=== PATIENT | female | born 1985 | race Caucasian/White ===

== ENCOUNTER 2017-01-23 21:07 | Inpatient (IN) | payer BC ==
[~2017-01-23] VITALS: Ht 165.1 cm; Wt 81.8 kg
[~2017-01-23 21:07] MED LIST: MOTRIN 600600 MG/TAB PO; PERCOCET 325 MG1 TA2 PO
[2017-01-23 21:21] VITALS: BP 123/62; PULSE 76; TEMP 98.5
[2017-01-23] MEDS ORDERED: PRENATAL1 TA7 PO (21:33)
[2017-01-23 23:30] VITALS: BP 123/75; PULSE 68
[2017-01-23 23:40] LABS: BASO % 0.4 % (0.0-2.0); EOS # 0.1 (0.0-0.7); EOS % 0.7 % (0-4.0); GRAN # 7.9 (1.4-6.5); GRAN % 74.7 % (42.2-75.2); LYMPH # 1.7 (1.2-3.4); LYMPH % 15.9 % (20.0-51.0); MEAN CELL VOLUME 84 fl (80.0-100.0); MEAN CORPUSCULAR HGB CONC 33 g/dl (33.0-37.0); MEAN PLATELET VOLUME 12.3 fl (7.4-10.4); MONO # 0.8 (0.1-0.6); MONO % 7.7 % (1.7-9.3); PLATELET COUNT 174 K/mm3 (130-400); REDCELL DISTRIBUTION WIDTH-CV 14.3 % (11.5-14.5); WHITE BLOOD COUNT 10.5 K/mm3 (4.8-10.8)
[2017-01-23 23:41] LABS: HEMATOCRIT 31.8 % (37.0-47.0); HEMOGLOBIN 10.6 g/dl (12.5-16.0); MEAN CORPUSCULAR HEMOGLOBIN 28 pg (27.0-31.0)
[2017-01-24] VITALS (23 sets, daily range): BP systolic 87–158; BP diastolic 45–80; PULSE 54–88; TEMP 97.2–98.3
[2017-01-25] MEDS ORDERED: IBU800 M1 PO (07:14)
[2017-01-25 08:30] VITALS: BP 120/69; PULSE 67; TEMP 98
== END 2017-01-25 13:10 | disposition home or self-care (01) | DRG 775 ==
LOC: LDRO 21:07 → LDR 22:50 → OB 01-24 08:45
PROVIDERS: Student in an Organized Health Care Education/Training Program
PROC: 10E0XZZ Delivery of Products of Conception, External Approach (ICD-10-PCS; principal; 2017-01-24)
PROC: 0KQM0ZZ Repair Perineum Muscle, Open Approach (ICD-10-PCS; 2017-01-24)
PROC: 0UQMXZZ Repair Vulva, External Approach (ICD-10-PCS; 2017-01-24)
DX: O70.1 Second degree perineal laceration during delivery (principal); Z37.0 Single live birth; O71.82 Other specified trauma to perineum and vulva; Z3A.39 39 weeks gestation of pregnancy
CPT/HCPCS: J2590; J7120

== ENCOUNTER 2021-04-05 13:30 | Inpatient (IN) | payer BC ==
[~2021-04-05] VITALS: Ht 165.1 cm; Wt 88.4 kg
[2021-04-05] VITALS (27 sets, daily range): BP systolic 106–136; BP diastolic 52–87; PULSE 58–92; TEMP 97.7–99
[~2021-04-05 13:30] MED LIST changes: +IBU800 M1 PO; +PRENATAL1 TA7 PO
--- NOTE | 2021-04-05 13:40 | NUR ---
Patient ambulatory to LR3 with spouse, changed into gown, FHR/TOCO monitors placed and explained. Patient states that she had some fluid about 0030 and continued to leak, some slight cramping. Patient denies any regular contractions/leaking of fluid/vaginal bleeding/decreased movement. Plan of care discussed. 1345: SVE-2/50/-2 and amniotest positive with clear fluid noted. 1357: Dr. Morse called and notified-orders for admit and start pitocin. Assessment completed/consents signed/ packet given. 1420: IV started in left upper arm, blood obtained and to lab, LR infushing. Pitocin augmentation discussed and patient agrees, pitocin started at this time at 2 mU/ml. 1430: Dr. Morse at bedside discussing the possible need to start antibiotics due to prolonged rupture of membranes.
[2021-04-05] MEDS ORDERED: OSCAL 500 TAB500 MG PO (13:53)
[2021-04-05] MEDS ORDERED: PRENATAL TABLET PO (13:53)
[2021-04-05 15:06] LABS: BASO % 0.3 % (0.0-2.0); EOS % 0.4 % (0-4.0); GRAN # 8.7 (1.4-6.5); GRAN % 81.3 % (42.2-75.2); HEMOGLOBIN 11.2 g/dl (12.5-16.0); LYMPH # 1.2 (1.2-3.4); LYMPH % 11.1 % (20.0-51.0); MEAN CELL VOLUME 87 fl (80.0-100.0); MEAN CORPUSCULAR HEMOGLOBIN 29 pg (27.0-31.0); MEAN CORPUSCULAR HGB CONC 33 g/dl (33.0-37.0); MEAN PLATELET VOLUME 12.3 fl (7.4-10.4); MONO # 0.7 (0.1-0.6); MONO % 6.3 % (1.7-9.3); PLATELET COUNT 188 K/mm3 (130-400); REDCELL DISTRIBUTION WIDTH-CV 14.1 % (11.5-14.5)
[2021-04-05 15:16] LABS: HEMATOCRIT 33.8 % (37.0-47.0)
--- NOTE | 2021-04-05 15:45 | NUR ---
Patient on birthing ball and difficulty tracing FHR due to maternal position, monitor adjusted. 1610: Patient continues to sit on birthing ball. 1716: Patient off monitors to void. 1722: Patient standing at bedside.
--- NOTE | 2021-04-05 18:15 | NUR ---
Dr. Morse at bedside and assessing patient and FHR strip. SVE per physician-/-2 and rupture of forebag at this time with clear fluid noted. Orders to begin Penicillin due to prolong rupture.
--- NOTE | 2021-04-05 18:30 | NUR ---
183- BEDSIDE SHIFT REPORT RECEIVED. PT UP TO BIRTHING VERÓNICA, DENIES FURTHER NEEDS AT THIS TIME. 1855- PT ASSISTED BACK TO BED. STATES SHE IS FEELIG HER CONTRACTIONS MORE INTENSELY AND WOULD LIKE TO BE CHECKED. 1899- SVE BY THIS NURSE -+1. PT POSITIONED FOR COMFORT. 1915- NURSE TO BEDSIDE. REPOSITIONS PT. PT STATES SHE IS MORE UNCOMFORTABLE WITH SOME PRESSURE. 1919- SVE BY THIS NURSE UNCHANGED. 1929- DR POWELL CALLS AND IS UPDATED WITH CURRENT SVE AND PT COMFORT LEVEL. 1934- PT TO LEFT LATERAL FOR COMFORT. 1946- NURSE TO BEDSIDE. PT GRUNTING THROUGH CONTRACTIONS AND STATES SHE FEELS LIKE PUSHING. DR POWELL CALLED TO COME TO BEDSIDE. SVE BY THIS NURSE +. 1955- DR POWELL TO BEDSIDE, SVE UNCHANGED. NURSE AT BEDSIDE AND ASSISTS PT WITH BREATHING THROUGH CONTRACTIONS. 2004- PT SITTING UP IN BED IN JOB POSITION. BREATHING THROUGH CONTRACTIONS. 2013- PT'S BODY SPONTANEOUSLY PUSHING WITH CONTRACTION AND PERINEUM IS BULGING. DR POWELL CALLED TO BEDSIDE. SVE BY HER COMPLETE. 2016- SPONTANEOUS VAGINAL DELIVERY OF VIABLE FEMALE, VIGOROUS, TO MOTHER'S ABDOMEN AND CARE OF NURSERY STAFF. 2019- SPONTANEOUS DELIVERY OF PLACENTA, EXAMINED BY DR POWELL. REPAIR OF SECOND DEGREE LACERATION IN PROGRESS. PITOCIN INFUSING. 2029- REPAIR COMPLETE. COUNTS CORRECT. PERICARE PROVIDED. ICEPACK TO PERINEUM. FEET DOWN FROM FOOTPLATES AND RECOVERY STARTED.
--- NOTE | 2021-04-05 22:00 | NUR ---
2200- IV TO SALINE LOCK. PT ASSISTED TO BATHROOM. AMBULATES WELL. PT ABLE TO VOID 250ML WITHOUT DIFFICULTY. PT PERFORMS PERICARE, NORMAL LOCHIA DISCUSSED. CLEAN GOWN, PAD, AND PANTIES PROVIDED. 2215- PT AMBULATES TO ROOM 215. BELONINGS WITH PT. PT ORIENTED TO ROOM AND CALL LIGHTS, PLAN OF CARE DISCUSSED AND PT DENIES FURTHER NEEDS AT THIS TIME. 2220-PT TO NURSERY TO SEE BABY. 2250- VITALS CHARTED. PT DENIES NEEDS.
[2021-04-06 02:30] VITALS: BP 84/64; PULSE 71; TEMP 98.1
[2021-04-06 08:53] VITALS: BP 104/64; PULSE 76; TEMP 98.1
[2021-04-06 16:00] VITALS: BP 102/68; PULSE 76; TEMP 98.6
--- NOTE | 2021-04-06 18:30 | NUR ---
Resting at this time. asleep while being held by mom. Updated whiteboard and reviewed POC.
[2021-04-06 20:30] VITALS: BP 104/59; PULSE 70; TEMP 98.1
[2021-04-07 10:00] VITALS: BP 109/75; PULSE 65; TEMP 98.1
[2021-04-07 17:40] VITALS: BP 119/60; PULSE 67; TEMP 98.1
== END 2021-04-07 18:00 | disposition home or self-care (01) | DRG 807 ==
LOC: LDRO 13:30 → LDR 14:00 → OB 22:15
PROVIDERS: Obstetrics & Gynecology; ADMIT Student in an Organized Health Care Education/Training Program
PROC: 10E0XZZ Delivery of Products of Conception, External Approach (ICD-10-PCS; principal; 2021-04-05)
PROC: 0KQM0ZZ Repair Perineum Muscle, Open Approach (ICD-10-PCS; 2021-04-05)
PROC: 3E033VJ Introduction of Other Hormone into Peripheral Vein, Percutaneous Approach (ICD-10-PCS; 2021-04-05)
DX: O42.02 Full-term premature rupture of membranes, onset of labor within 24 hours of rupture (principal); Z37.0 Single live birth; Z3A.38 38 weeks gestation of pregnancy; O70.1 Second degree perineal laceration during delivery
CPT/HCPCS: J2540; J2590; J7120